=== PATIENT | male | born 1960 | race Caucasian/White ===

== ENCOUNTER → 2022-06-26 | Outpatient (CLI) | payer OTHER ==
[~2022-06-26] MED LIST: BASAGLAR SQ; BAYER CHEWABLE81 MG PO; ENULOSE10 GM/15 M PO; FLONASE 0.05% N16 GM; GABAPENTIN400 MG PO; GLUCOPHAGE500 MG PO; GLUCOTROL 10 MG10 MG PO; JANUVIA100 MG PO; LEVEMIR FL100 UNIT/1 SQ; LISINOPRIL10 MG PO; LISINOPRIL2.5 MG PO; LOVASTATIN20 MG PO; LOVASTATIN40 MG PO; METFORMIN HCL1000 MG PO; METOCLOPRAMIDE10 MG PO; NEURONTIN 300300 MG PO; NORCO 10-325 T1 EACH PO; TYLENOL COLD &1 EACH PO; VIAGRA50 MG PO; VOLTAREN EC 7575 MG PO
== END ==
LOC: EXRD 15:30
DX: R60.9 Edema, unspecified (principal)
CPT/HCPCS: 93971